=== PATIENT | female | born 1950 | race Caucasian/White ===

== ENCOUNTER 2020-08-15 18:09 | Observation (INO) | payer MEDICARE, OTHER ==
[~2020-08-15] VITALS: Ht 160 cm; Wt 73.3 kg
[~2020-08-15 18:09] MED LIST: ALL DAY ALLERGY10 M3 PO; IBUPROFEN800 MG PO; MIRALAX17 GM PO; NAPROSYN500 MG PO; NORCO 7.5-3251 EACH PO; OMEGA 3 FISH O1 EACH PO; SYNTHROID75 MCG PO; VITAMIN D2400 UNIT PO
[2020-08-15 18:53] LABS: HEMOGLOBIN 13.9 gm/dl (12.3-15.3); RED BLOOD COUNT 4.6 M/UL (4.00-5.10); WHITE BLOOD COUNT 6.7 K/UL (4.5-11.0)
[2020-08-15 19:24] LABS: BUN/CREATININE RATIO 19 (0-10)
[2020-08-16 05:59] LABS: RED BLOOD COUNT 4.37 M/UL (4.00-5.10); WHITE BLOOD COUNT 5.4 K/UL (4.5-11.0)
[2020-08-16 06:15] LABS: BUN/CREATININE RATIO 19 (0-10)
== END 2020-08-17 11:55 | disposition home or self-care (01) ==
LOC: ER1 18:09 → MED SURG 4 21:49 → CDU 21:49 → MED SURG 4 08-16 00:22
PROVIDERS: Emergency Medicine; ADMIT Internal Medicine
DX: R55 Syncope and collapse (principal); S01.01XA Laceration without foreign body of scalp, initial encounter; E03.9 Hypothyroidism, unspecified; X58.XXXA Exposure to other specified factors, initial encounter; Z20.822 Contact with and (suspected) exposure to COVID-19
CPT/HCPCS: ECHO; 36415; 70450; 71045; 72125; 73630; 80048; 80053; 82550; 82553; 83735; 83874; 83880; 84100; 84439; 84443; 84484; 85025; 85610; 85730; 90471; 90715; 93005; 93306; 93880; 96374; 97161; 99285; G0378; J2270; U0002

== ENCOUNTER → 2021-12-01 | Outpatient (CLI) | payer MEDICARE, OTHER | LOC: KOH-I 11:12 | DX: M51.37 Other intervertebral disc degeneration, lumbosacral region (principal); M51.34 Other intervertebral disc degeneration, thoracic region; M51.36 Other intervertebral disc degeneration, lumbar region | CPT/HCPCS: 72070; 72100 ==

== ENCOUNTER → 2021-12-13 | Outpatient (CLI) | payer MEDICARE, OTHER | LOC: KOH-I 09:10 | DX: R40.4 Transient alteration of awareness (principal) | CPT/HCPCS: 70450 ==